=== PATIENT | female | born 1955 | race Caucasian/White ===

== ENCOUNTER 2016-08-30 11:28 | Emergency (ER) | payer MEDICARE, OTHER ==
[~2016-08-30 11:28] MED LIST: ADVIL PO; AMOXICILLIN PO; ASAB PO; BACDS PO; CALAN80 MG PO; CHEMO IV; COMBIVENT INH; COMBIVENT RESPIM4 GM INH; COMP10B PO; CRESTOR20 MG PO; DURA100 TOP; DURA25 TOP; ENDOCET1 TA3 PO; FISH-EPA1000 MG PO; FLONASE NAS; HALF81 PO; LINZESS 290 M290 MCG PO; LIPITOR20 PO; LIPITOR40 PO; LIPOTRIAD1 CAP PO; LOTE20 PO; LOTREL1 CA4 PO; MAGIC MOUTH WASH MT; MELA3 PO; MIRALAXPKT PO; MSCONTIN PO; MSIMMREL PO; MULTIVITAMI1 PO; NASONEX NAS; NEXIUM40 MG PO; NEXIUM40 PO; NITROQUICK0.4 MG SL; NITROSTAT0.4 MG SL; NORV5 PO; NYQUIL PO; NYS500UDL PO; PERCOCET1 TA4 PO; PR12.5 PO; PR25 PO; PRILO PO; PRILOSEC40 MG PO; RANITIDINE300 MG PO; RELISTOR12 MG/0.6 SC; TYLENOL COLD & FLU PO; TYLENOL PO; V120 PO; V180SR PO; VISCOUS LIDOCAINE 2% PO; VITAMIN B-121000 MC1 SL; VITAMIN B-122500 MCG SL; WELL75 PO; XANAX1 MG PO; ZESTORETIC PO; ZOFRAN8 PO; [UNRECOGNIZED DRUG - OTHER] PO
== END 2016-08-30 11:30 | disposition home or self-care (01) ==
LOC: ER 11:28
DX: S00.411A Abrasion of right ear, initial encounter (principal); I10 Essential (primary) hypertension; K21.9 Gastro-esophageal reflux disease without esophagitis; J44.9 Chronic obstructive pulmonary disease, unspecified; F17.200 Nicotine dependence, unspecified, uncomplicated; Z95.1 Presence of aortocoronary bypass graft; Z86.73 Personal history of transient ischemic attack (TIA), and cerebral infarction without residual deficits; Z90.710 Acquired absence of both cervix and uterus; Z91.041 Radiographic dye allergy status; Z88.1 Allergy status to other antibiotic agents; Z79.82 Long term (current) use of aspirin; Z79.899 Other long term (current) drug therapy; W26.8XXA Contact with other sharp object(s), not elsewhere classified, initial encounter
CPT/HCPCS: 99283